=== PATIENT | female | born 1990 | race Two or more races ===

== ENCOUNTER 2017-12-27 01:21 | Emergency (ER) | payer OTHER ==
[~2017-12-27] VITALS: Ht 157.5 cm; Wt 48.5 kg
--- NOTE | 2017-12-27 01:47 | NUR ---
CHRISTINA VU AT BEDSIDE FOR MSE.
--- NOTE | 2017-12-27 01:53 | NUR ---
Pt presents w/ left ssecond toe swelling and pain x1 week. She stated she had a pedicure w/ unsterilized equipment, and shortly thereafter started experiencing the stated symptoms/presentation.
[2017-12-27] MEDS ORDERED: CEFTRIAXONE 1 G VIAL IM ONE (02:00)
[2017-12-27] MEDS ORDERED: SULFAMETH/TRIMETH 800/160 MG TABLET PO ONE (02:00)
[2017-12-27] MEDS ORDERED: CEFTRIAXONE 1 G VIAL ONE (02:14)
[2017-12-27] MEDS ORDERED: SULFAMETH/TRIMETH 800/160 MG TABLET ONE (02:14)
--- NOTE | 2017-12-27 02:14 | NUR ---
Patient discharged to home in stable conditon. Written and verbal after care instructions given. Patient verbalizes understanding of instructions. Ambulated from ER w/ steady gait. Pt took all belongings.
[2017-12-27 03:59] VITALS: BP 103/69
== END 2017-12-27 02:20 | disposition home or self-care (01) ==
LOC: ER 01:21
DX: L03.032 Cellulitis of left toe (principal); B35.1 Tinea unguium
CPT/HCPCS: A4663; J0696; J3490

== ENCOUNTER 2019-10-22 08:06 | Emergency (ER) | payer OTHER ==
[~2019-10-22] VITALS: Ht 157.5 cm; Wt 48.5 kg
--- NOTE | 2019-10-22 08:15 | NUR ---
Patient ambulated with stable gait. A/Ox4. Speech clear, speaks in complete sentences. No neuro deficits. Patient came for c/o neck/back/shoulder pain after reportedly jumping on bed with her daughter last night. Respiratory even and unlabored, no cough no sob.
--- NOTE | 2019-10-22 08:17 | NUR ---
ERMD at bedside for MSE
[2019-10-22] MEDS ORDERED: ONDANSETRON ODT 4 MG TAB.RAPDIS ONE (08:23)
[2019-10-22] MEDS ORDERED: ONDANSETRON ODT 4 MG TAB.RAPDIS SL ONE (08:30)
--- NOTE | 2019-10-22 08:36 | NUR ---
Patient transported to Radiology in stable condition.
--- NOTE | 2019-10-22 09:02 | NUR ---
Patient back in room from Radiology. NAD
--- NOTE | 2019-10-22 09:28 | NUR ---
Patient discharged to home in stable conditon. Written and verbal after care instructions given. Patient verbalizes understanding of instructions. Patient ambulated with stable gait.
[2019-10-22 09:29] VITALS: BP 112/79
== END 2019-10-22 09:29 | disposition home or self-care (01) ==
LOC: ER 08:06
DX: S16.1XXA Strain of muscle, fascia and tendon at neck level, initial encounter (principal); R11.0 Nausea; X58.XXXA Exposure to other specified factors, initial encounter; Y93.89 Activity, other specified; Y92.89 Other specified places as the place of occurrence of the external cause; Y99.8 Other external cause status
CPT/HCPCS: 72072; A4663; Q0162

== ENCOUNTER 2021-01-17 15:33 | Emergency (ER) | payer OTHER ==
[~2021-01-17] VITALS: Ht 157.5 cm; Wt 49.9 kg
--- NOTE | 2021-01-17 15:55 | NUR ---
at bedside for assessment
[2021-01-17] MEDS ORDERED: IV NORMAL SALINE 1000 ML BAG IV ONE (16:15)
[2021-01-17] MEDS ORDERED: METOCLOPRAMIDE HCL 10 MG/2 ML VIAL IV ONE (16:15)
[2021-01-17] MEDS ORDERED: METOCLOPRAMIDE HCL 10 MG/2 ML VIAL ONE (16:19)
[2021-01-17 16:26] LABS: *URINE HCG, QUAL NEGATIVE (NEGATIVE)
[2021-01-17 16:33] LABS: BASOPHILS % (AUTO) 0.4 % (0.0-2.0); EOSINOPHILS # (AUTO) 0.1 K/uL (0.0-0.7); EOSINOPHILS % (AUTO) 0.8 % (0.0-7.0); HEMATOCRIT 39.7 % (31.2-41.9); HEMOGLOBIN 13.2 g/dL (10.9-14.3); LYMPHOCYTES # (AUTO) 2.4 K/uL (20.0-40.0); LYMPHOCYTES % (AUTO) 27.9 % (20.5-51.5); MEAN CORPUSCULAR HEMOGLOBIN 31.5 uug (24.7-32.8); MEAN CORPUSCULAR HGB CONC 33 g/dL (32.3-35.6); MEAN CORPUSCULAR VOLUME 94.8 fL (75.5-95.3); MONOCYTES # (AUTO) 0.6 K/uL (2.0-10.0); MONOCYTES % (AUTO) 6.7 % (0.0-11.0); NEUTROPHILS # (AUTO) 5.6 K/uL (1.8-8.9); NEUTROPHILS % (AUTO) 64.2 % (38.5-71.5); PLATELET COUNT (AUTO) 181 K/uL (179-408); RED BLOOD CELL COUNT(AUTO) 4.19 MIL/uL (3.63-4.92); WHITE BLOOD COUNT (AUTO) 8.7 K/uL (3.8-11.8)
[2021-01-17] MEDS ORDERED: IV NORMAL SALINE 250 ML IV ONE (16:49)
[2021-01-17] MEDS ORDERED: IOHEXOL 300MG/ML 100 ML INFUS..BTL ONE (16:49)
[2021-01-17] MEDS ORDERED: SWABABLE VALVE TRANSFER SET EA MC ONE (16:49)
[2021-01-17 16:53] LABS: CREATININE 0.7 mg/dL (0.6-1.3); POTASSIUM 3.9 mmol/L (3.5-5.1)
--- NOTE | 2021-01-17 17:50 | NUR ---
Patient discharged to home in stable condition. Being picked up by "bf". Written and verbal after care instructions given. Patient verbalizes understanding of instructions. Stressed follow up or return to ER for worsening s/s.
[2021-01-17 17:55] VITALS: BP 100/73
== END 2021-01-17 17:52 | disposition home or self-care (01) ==
LOC: ER 15:34
DX: R51.9 Headache, unspecified (principal); Z86.16 Personal history of COVID-19
CPT/HCPCS: 36415; 70450; 70496; 71045; 80048; 84703; 85025; 85730; 96361; 96374; 99285; J2765; Q9967; A4663; J7050

== ENCOUNTER 2022-03-11 00:02 | Emergency (ER) | payer OTHER ==
[~2022-03-11] VITALS: Ht 157.5 cm; Wt 49.9 kg
[2022-03-11 00:32] LABS: *BILIRUBIN,URIN NEGATIVE (NEGATIVE); *BLOOD, URINE 3+ (NEGATIVE); *KETONES,URINE NEGATIVE (NEGATIVE); *UROBILINOGEN,URINE 0.2 E.U./dl (NORMAL); LEUKOCYTE ESTERASE ,URINE 1+ (NEGATIVE); NITRITE, URINE NEGATIVE (NEGATIVE); UGLUCOSE NEGATIVE (NEGATIVE)
[2022-03-11 00:39] LABS: *CLARITY,URINE TURBID (CLEAR)
[2022-03-11 00:40] LABS: *COLOR,URINE BLOODY (YELLOW)
[2022-03-11 00:43] LABS: RBC,URINE TNTC /HPF (0-3)
[2022-03-11 00:44] LABS: *URINE HCG, QUAL NEGATIVE (NEGATIVE); BACTERIA,URINE FEW /HPF (NONE SEEN); SQUAMOUS EPITHELIAL CELL,UR FEW /HPF (NONE SEEN)
[2022-03-11] MEDS ORDERED: PHENAZOPYRIDINE HCL 100 MG TABLET PO ONE (01:15)
[2022-03-11] MEDS ORDERED: NITROFURANTOIN/NITROFURAN MAC 100 MG CAPSULE PO ONE ×2 (01:15→01:25)
[2022-03-11] MEDS ORDERED: PHEN-705 PO (01:24)
[2022-03-11] MEDS ORDERED: NITR-84 PO (01:24)
[2022-03-11] MEDS ORDERED: PHENAZOPYRIDINE HCL 100 MG TABLET ONE (01:26)
[2022-03-11 01:32] VITALS: BP 100/59
--- NOTE | 2022-03-11 01:32 | NUR ---
Patient discharged to home in stable condition. Written and verbal after care instructions given. Patient verbalizes understanding of instructions. Stressed follow up or return to ER for worsening s/s.
== END 2022-03-11 01:32 | disposition home or self-care (01) ==
LOC: ER 00:09
DX: N30.91 Cystitis, unspecified with hematuria (principal)
CPT/HCPCS: 84703; 87086; A4663